=== PATIENT | female | born 1995 | race American Indian/Alaskan Native ===

== ENCOUNTER 2017-01-04 07:39 | Emergency (ER) | payer OTHER ==
[2017-01-04 07:48] VITALS: BP 138/95
[2017-01-04 08:24] LABS: Urine Drugs of Abuse Note Disclamer
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
[2017-01-04] MEDS ORDERED: TORADOL IM ONE (08:58)
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
== END 2017-01-04 11:20 | disposition home or self-care (01) ==
LOC: ED 07:39
DX: S13.4XXA Sprain of ligaments of cervical spine, initial encounter (principal); S86.912A Strain of unspecified muscle(s) and tendon(s) at lower leg level, left leg, initial encounter; Z72.0 Tobacco use; V89.2XXA Person injured in unspecified motor-vehicle accident, traffic, initial encounter; Y93.89 Activity, other specified; Y99.9 Unspecified external cause status; Y92.410 Unspecified street and highway as the place of occurrence of the external cause
CPT/HCPCS: 29505; 36415; 70450; 73562; 80307; 81025; 96372; 99285; G0480; J1885; 80320